=== PATIENT | male | born 1985 | race Asian ===

== ENCOUNTER 2018-04-07 17:28 | Emergency (ER) | payer SELFPAY ==
--- NOTE | 2018-04-07 18:28 | ER Document Report ---
HPI - HPI Patient complains to provider of: Abscess Onset: Other - 5 days Onset/Duration: Gradual Pain Level: 4 Context: 33-year-old male with a history scrotal abscess c/o large abscess left buttocks started having pain and swelling 5 days ago. No fever or chills. Patient goes to urgent care for his metformin that he takes twice a day. He does not take medication for high blood pressure he thinks that this high blood pressure is due to the pain. I will recheck a manual blood pressure encourage him to start on blood pressure medicine if it remains high. For him back to his urgent care that he goes for his primary care Associated Symptoms: None Exacerbated by: Movement, Walking Relieved by: Denies Similar symptoms previously: Yes Recently seen / treated by doctor: No - ROS ROS below otherwise negative: Yes Systems Reviewed and Negative: Yes All other systems reviewed and negative Past Medical History - General Information source: Patient - Social History Smoking Status: Current Every Day Smoker Frequency of alcohol use: None Drug Abuse: None Lives with: Family Family History: None Endocrine Medical History: Reports: Hx Diabetes Mellitus Type 2 Surgical Hx: Negative - Immunizations Hx Diphtheria, Pertussis, Tetanus Vaccination: Yes Vertical Provider Document - CONSTITUTIONAL Agree With Documented VS: Yes Exam Limitations: No Limitations - INFECTION CONTROL TRAVEL OUTSIDE OF THE [place] IN LAST 30 DAYS: No - MUSCULOSKELETAL/EXTREMETIES Musculoskeletal/Extremeties: Tender - Left-sided gluteal absess with induration 6 x 6 cm - NEURO Level of Consciousness: Alert - DERM Integumentary: No Rash, Abscess - See above Course - Re-evaluation Re-evalutation: 04/07/18 19:42 Discussed with patient about how largest cavity was in the fact that he is a type II diabetic he needs to follow-up within 24 hours antibiotics have been given 04/07/18 20:14 Patient did not take his metformin today he does have metformin at home I discussed at length with him about needing tighter control of glucose and getting treatment for hypertension I have given him referral to family practice doctors and he assures me that he will return sooner if he feels worse tomorrow as planned for recheck. - Vital Signs Vital signs: Temp Pulse Resp BP Pulse Ox 99.1 F 100 16 176/114 H 99 04/07/18 17:53 04/07/18 17:53 04/07/18 17:53 04/07/18 17:53 04/07/18 17:53 Procedures - Incision and Drainage Buttock Time completed: 19:41 Type: Simple Anesthetic type: 1% Lidocaine mL's of anesthetic: 5 Blade size: 11 I&D procedure: Betadine prep applied, Sterile dressing applied, Other - corner of 4 x 4 packing Incision Method: Incision made by scalpel Amount/type of drainage: large pus- cavity was 4 x 4 cm, irriagted with 150 ml NS Notes: 04/07/18 19:43 The first incision over fluctuance did not release any pus so I used a syringe and needle to find where the pus was over another area and pus was extracted so I incised there and large amounts of pus came out and I irrigated the cavity. Discharge - Discharge Clinical Impression: left buttocks abscess, Incision and drainage, Uncontrolled diabetes Hypertension Qualifiers: Hypertension type: unspecified Qualified Code(s): I10 - Essential (primary) hypertension Condition: Good Disposition: HOME, SELF-CARE Instructions: Abscess ([facility]), Cephalexin ([facility]), Post Incision and Drainage, Trimethoprim-Sulfa ([facility]), Warm Packs ([facility]), High Blood Pressure ([facility]), Diabetes ([facility]), Family Physicians / Practices Additional Instructions: Warm compress Recheck in 24 hours Return to the emergency room sooner if you develop a fever Take the antibiotics as prescribed Take the metformin when you get home List is given to you for primary care doctor to treat the high blood pressure and diabetes. Prescriptions: Cephalexin Monohydrate [Keflex 500 mg Capsule] 500 mg PO QID #28 capsule Sulfamethoxazole/Trimethoprim [Septra-Ds 800-160 mg Tablet] 1 tab PO NOW #14 tablet Referrals: MADIE BELTRAN MD [ACTIVE STAFF] - 04/10/18
[2018-04-07] MEDS: SULFAMETHOXAZOLE/TRIMETHOPRIM 800-160 MG TABLET PO ONE (18:48)
[2018-04-07] MEDS: ACETAMINOPHEN 325 MG TABLET PO ONE (18:48)
[2018-04-07] MEDS: CEPHALEXIN 500 MG CAPSULE PO ONE (18:48)
[2018-04-07] MEDS: LIDOCAINE 4%/TETRACAINE 0.5%/EPI 0.18% 5 ML TOPICAL SOLN TOP ONE (18:48)
[2018-04-07] MEDS: IBUPROFEN 800 MG TABLET PO ONE (18:48)
[2018-04-07 20:18] VITALS: BP 180/115
== END 2018-04-07 20:35 | disposition home or self-care (01) ==
LOC: ER 17:28
DX: L02.31 Cutaneous abscess of buttock (principal); E11.65 Type 2 diabetes mellitus with hyperglycemia; T38.3X6A Underdosing of insulin and oral hypoglycemic [antidiabetic] drugs, initial encounter; Z91.128 Patient's intentional underdosing of medication regimen for other reason; Z91.14 Patient's other noncompliance with medication regimen; Z79.84 Long term (current) use of oral hypoglycemic drugs; I10 Essential (primary) hypertension; F17.200 Nicotine dependence, unspecified, uncomplicated
CPT/HCPCS: 10060; 99283; 82962; J3490

== ENCOUNTER 2018-04-25 21:17 | Emergency (ER) | payer SELFPAY ==
--- NOTE | 2018-04-26 01:44 | ER Document Report ---
ED Skin Rash/Insect Bite/Abscs - General Chief Complaint: Abscess Stated Complaint: CYST DRAINING Time Seen by Provider: 04/26/18 00:01 Mode of Arrival: Ambulatory Information source: Patient Notes: Patient presents with complaint of abscess to the upper buttocks just superior to the gluteal fold. Patient reports he was seen here recently and had an abscess drained in the similar area. Patient reports being compliant with his antibiotics. Patient denies any fever, chills, nausea or vomiting. Patient denies any history of MRSA. TRAVEL OUTSIDE OF THE [place] IN LAST 30 DAYS: No - Related Data Allergies/Adverse Reactions: No Known Allergies Allergy (Verified 01/02/15 20:53) Past Medical History - General Information source: Patient - Social History Smoking Status: Former Smoker Chew tobacco use (# tins/day): No Frequency of alcohol use: None Drug Abuse: None Family History: None Patient has suicidal ideation: No Patient has homicidal ideation: No - Past Medical History Cardiac Medical History: Reports: Hx Hypertension Endocrine Medical History: Reports: Hx Diabetes Mellitus Type 2 Renal/ Medical History: Denies: Hx Peritoneal Dialysis Psychiatric Medical History: Reports: Hx Anxiety Surgical Hx: Negative - Immunizations Hx Diphtheria, Pertussis, Tetanus Vaccination: Yes Review of Systems - Review of Systems Constitutional: No symptoms reported EENT: No symptoms reported Cardiovascular: No symptoms reported Respiratory: No symptoms reported Gastrointestinal: No symptoms reported Genitourinary: No symptoms reported Male Genitourinary: No symptoms reported Musculoskeletal: No symptoms reported Skin: See HPI Hematologic/Lymphatic: No symptoms reported Neurological/Psychological: No symptoms reported Physical Exam - Vital signs Vitals: Temp Pulse Resp BP Pulse Ox 99.4 F 117 H 20 185/128 H 99 04/25/18 21:23 04/25/18 21:23 04/25/18 21:23 04/25/18 21:23 04/25/18 21:23 - Notes Notes: PHYSICAL EXAMINATION: GENERAL: Well-appearing, well-nourished and in no acute distress. HEAD: Atraumatic, normocephalic. EYES: Pupils equal round and reactive to light, extraocular movements intact, sclera anicteric, conjunctiva are normal. ENT: Nares patent, oropharynx clear without exudates. Moist mucous membranes. NECK: Normal range of motion, supple without lymphadenopathy LUNGS: Breath sounds clear to auscultation bilaterally and equal. No wheezes rales or rhonchi. HEART: Regular rate and rhythm without murmurs ABDOMEN: Soft, nontender, nondistended abdomen. No guarding, no rebound. No masses appreciated. Musculoskeletal: Normal range of motion, no pitting or edema. No cyanosis. NEUROLOGICAL: Cranial nerves grossly intact. Normal speech, normal gait. Normal sensory, motor exams PSYCH: Normal mood, normal affect. SKIN: Warm, Dry, normal turgor. Large erythematous noted just superior to the gluteal fold left side of the buttock. Large area of induration and fluctuance. Course - Re-evaluation Re-evalutation: Incision and drainage was performed, see procedure notes. Large amount of pus/ drainage was removed. This is the second time in a few weeks that this has been drained. I did discuss with patient following up with the surgeon may need a surgical washout if this continues. I also discussed patient's blood pressure as patient states that he has hypertension but has not taken any medications in several years as he does not feel that it is important. Patient' s blood pressure at time of discharge is down to 166/104. Patient was tachycardic on arrival with a heart rate of 119, this has gone down to 109. Patient is afebrile and has denied any fevers over the last several weeks. Discussed the importance of following up with a primary care provider for blood pressure management. Patient does verbalize understanding of same. Patient reports understanding of need to return in 24 hours for removal of the packing. - Vital Signs Vital signs: Temp Pulse Resp BP Pulse Ox 98.5 F 109 H 16 166/104 H 100 04/26/18 01:52 04/26/18 01:52 04/26/18 01:52 04/26/18 01:52 04/26/18 01:52 Procedures - Incision and Drainage left buttock Type: Multiple Anesthetic type: 1% Lidocaine Blade size: 11 I&D procedure: Betadine prep applied, Shurclens applied, Iodoform packing placed Incision Method: Incision made by scalpel Adult Front & Back picture: 1 - Erythematous area with induration and fluctuance Discharge - Discharge Clinical Impression: Abscess Condition: Stable Disposition: HOME, SELF-CARE Additional Instructions: ABSCESS: You have an abscess (boil). This a pus-forming infection, usually due to staph. Some boils may be left to drain on their own, but most require lancing. From the time the tender lump first appears, it may be three or four days before the abscess is ready to bob. Local heat and rest help at this stage of treatment. An antibiotic may prevent spread of the infection. Once the abscess is opened, packing may be placed into it. This is done so pus is not sealed inside by premature closure of the cavity. The packing will be removed at your follow-up visit or you may be advised to remove it yourself at home. Sometimes this packing must be replaced a few times during healing. The wound will heal with surprisingly little scar. Depending on the size and location of an abscess, healing can take one to four weeks. You may shower and wash the area around the incision site two or three times a day. Antibiotics may be prescribed, but are usually not necessary after an abscess has been drained. If you develop fever, chills, worsening pain, or increasing swelling in the area, call the doctor or return immediately. POST INCISION AND DRAINAGE: You have had an incision made to allow drainage of an abscess. The incision must remain open so that pus and debris can drain from the wound. If the abscess cavity is large, packing is placed. This keeps the tissues from collapsing and trapping pus inside, while the body shrinks the cavity. The packing may need to be replaced every day or two. The physician will instruct you on the packing. Keep a bulky dressing over the area. Replace it if it becomes saturated with blood or pus. Do not disturb the packing (if present). You may shower and cleanse the area with gentle soap and warm water two or three times a day. Local warmth may be soothing, and may promote faster healing. Return if you develop high fever or chills, or if you note spreading redness, increasing swelling, or increasing tenderness. MRSA CELLULITIS: You have an infection of your skin and underlying soft tissues called cellulitis. This is due to bacteria, which can enter through any break in the skin, or even through an irritated hair follicle. Untreated, cellulitis will usually worsen and may form an abscess which requires draining. Although many bacterial organisms can cause cellulitis and abscess formations, the most likely bacteria is Methicillin-Resistant Staph Aureus, or MRSA for short. Antibiotics are required. Usually, warm packs or warm soaks, and elevation of the infected area are recommended. You should start getting better within 24 to 36 hours. Most infections respond quickly to the right medication. Follow-up care is important, however, to check for abscess (boil) formation, unsuspected foreign body, or resistant infection. If you develop fever, chills, or if the area of infection is becoming rapidly more swollen or painful, call the doctor at once. ORAL NARCOTIC MEDICATION: You have been given a prescription for pain control. This medication is a narcotic. It's best taken with food, as nausea can result if taken on an empty stomach. Don't operate machinery or drive within six hours of taking this medication. Do not combine this medicine with alcohol, or with any medication which can cause sedation (such as cold tablets or sleeping pills) unless you get permission from the physician. Narcotics tend to cause constipation. If possible, drink plenty of fluids and eat a diet high in fiber and fruits. CEPHALEXIN: The antibiotic you've been prescribed is a member of the cephalosporin class. This type of antibiotic covers a wide variety of infections, including those of the skin, lungs, and urinary tract. It's useful for staph infections. This antibiotic is slightly similar to the penicillin family. In rare cases , a person who is allergic to penicillin will also be allergic to this medication. If you have had a severe allergic reaction to penicillin, and have not taken this antibiotic since that time, notify your doctor. Antibiotics which cover many germs ("broad spectrum" antibiotics) are more likely to cause diarrhea or "yeast" infections. Women prone to vaginal yeast problems may suffer an attack after taking this antibiotic. In infants, oral thrush (white spots "stuck" on the cheek) or yeast diaper rash may result. See your doctor if these problems occur. Call at once if you develop itching, hives , shortness of breath, or lightheadedness. DOXYCYCLINE: Doxycycline (Vibramycin, Doryx) is an antibiotic of the tetracycline family. This type of drug is useful for infections of the respiratory tract and genital tract, and is sometimes used for intestinal infections. Unlike most tetracyclines, doxycycline can be taken with food. It is longer acting, and (usually) less prone to side effects than regular tetracycline. Tetracycline antibiotics can stain immature teeth and SHOULD NOT BE TAKEN BY CHILDREN, NURSING MOTHERS, OR WOMEN. Tetracyclines can make you more prone to sunburn. Abdominal cramping, nausea, and diarrhea are occasional side effects. Women may experience vaginal yeast infections. Call the doctor at once if you develop hives, itching, shortness of breath , or lightheadedness. FOLLOW-UP CARE: Most simple abscesses will not require a follow up visit. If you had packing placed in the abscess, remove it as instructed by the physician. If you have been referred to a physician for follow-up care, call the physicians office for an appointment as you were instructed or within the next two days. If you experience worsening or a significant change in your symptoms, return to the Emergency Department at any time for re-evaluation. please return in 24 hours for packing removal. As discussed please call [facility] to set up an appointment to have your abscess evaluated as they may want to do a washout at some point if you continue to have these abscesses. Prescriptions: Cephalexin Monohydrate [Keflex 500 mg Capsule] 500 mg PO Q6H 7 Days #28 capsule Doxycycline Hyclate 100 mg PO BID #14 capsule Referrals: THEODORE MARQUEZ MD [ACTIVE STAFF] - Follow up as needed
[2018-04-26 01:54] VITALS: BP 166/104
== END 2018-04-26 02:05 | disposition home or self-care (01) ==
LOC: ER 21:17
PROC: 0H98XZZ Drainage of Buttock Skin, External Approach (ICD-10-PCS; principal; 2018-04-25)
DX: L02.31 Cutaneous abscess of buttock (principal); Z87.891 Personal history of nicotine dependence; I10 Essential (primary) hypertension; E11.9 Type 2 diabetes mellitus without complications
CPT/HCPCS: 99283; A6266

== ENCOUNTER 2019-07-02 11:18 | Emergency (ER) | payer SELFPAY ==
--- NOTE | 2019-07-02 12:07 | ER Document Report ---
ED Medical Screen (RME) - General Chief Complaint: Cyst Stated Complaint: ABSCESS Time Seen by Provider: 07/02/19 11:53 Notes: 34-year-old male presents emergency department with a pilonidal cyst. Patient has history in the past. No history of MRSA. No fevers but complains of chills. Exam: Large abscess at the top of the gluteal cleft on the right side with an area of fluctuance with large area of induration I have greeted and performed a rapid initial assessment of this patient. A comprehensive ED assessment and evaluation of the patient, analysis of test results and completion of medical decision making process will be conducted by an additional ED providers. TRAVEL OUTSIDE OF THE [place] IN LAST 30 DAYS: No - Related Data Allergies/Adverse Reactions: No Known Allergies Allergy (Verified 07/02/19 11:53) Home Medications: metformin BID Past Medical History - Social History Chew tobacco use (# tins/day): No Frequency of alcohol use: None Drug Abuse: None - Past Medical History Cardiac Medical History: Reports: Hx Hypertension Endocrine Medical History: Reports: Hx Diabetes Mellitus Type 2 Renal/ Medical History: Denies: Hx Peritoneal Dialysis Psychiatric Medical History: Reports: Hx Anxiety - Immunizations Hx Diphtheria, Pertussis, Tetanus Vaccination: Yes Physical Exam - Vital signs Vitals: Temp Pulse Resp BP Pulse Ox 98.8 F 104 H 20 178/105 H 98 07/02/19 11:37 07/02/19 11:37 07/02/19 11:37 07/02/19 11:37 07/02/19 11:37 Course - Vital Signs Vital signs: Temp Pulse Resp BP Pulse Ox 98.8 F 104 H 20 178/105 H 98 07/02/19 11:37 07/02/19 11:37 07/02/19 11:37 07/02/19 11:37 07/02/19 11:37
[2019-07-02] MEDS ORDERED: OXYCODONE-ACETAMINOPHEN 5-325 MG TABLET PO ONE (14:18)
[2019-07-02] MEDS ORDERED: LIDOCAINE 1% INJ-PF (10 MG/ML) 30 ML SDV INJ ONE (14:18)
[2019-07-02] MEDS ORDERED: SULFAMETHOXAZOLE/TRIMETHOPRIM 800-160 MG TABLET PO ONE (14:18)
[2019-07-02] MEDS ORDERED: CEPHALEXIN 500 MG CAPSULE PO ONE (14:18)
--- NOTE | 2019-07-02 14:43 | ER Document Report ---
ED Skin Rash/Insect Bite/Abscs - General Chief Complaint: Cyst Stated Complaint: ABSCESS Time Seen by Provider: 07/02/19 11:53 Primary Care Provider: MARK ANTHONY VILLA MD [ACTIVE STAFF] - Follow up as needed Notes: RME NOTE: 34-year-old male presents emergency department with a pilonidal cyst. Patient has history in the past. No history of MRSA. No fevers but complains of chills. Exam: Large abscess at the top of the gluteal cleft on the right side with an area of fluctuance with large area of induration. MY HPI: Patient has had 3 abscesses in the area in the last 3 years. States he is never followed up with surgery. States he is typically placed on antibiotics with an incision and drainage and they "clear up." Patient does take metformin on a daily basis for diabetes, patient's denying any history of fevers. Patient states he also takes medication for high blood pressure. States he thinks it is lisinopril but he is not 100% sure. Patient is denying headache, lightheadedness, dizziness, chest pain. Patient's only complaint is pain and irritation to the left buttocks where the abscesses. TRAVEL OUTSIDE OF THE [place] IN LAST 30 DAYS: No - Related Data Allergies/Adverse Reactions: No Known Allergies Allergy (Verified 07/02/19 11:53) Home Medications: metformin BID Past Medical History - General Information source: Patient - Social History Smoking Status: Former Smoker Chew tobacco use (# tins/day): No Frequency of alcohol use: None Drug Abuse: None Family History: None Patient has suicidal ideation: No Patient has homicidal ideation: No - Past Medical History Cardiac Medical History: Reports: Hx Hypertension Endocrine Medical History: Reports: Hx Diabetes Mellitus Type 2 Renal/ Medical History: Denies: Hx Peritoneal Dialysis Psychiatric Medical History: Reports: Hx Anxiety - Immunizations Hx Diphtheria, Pertussis, Tetanus Vaccination: Yes Review of Systems - Review of Systems Constitutional: denies: Fever EENT: No symptoms reported Cardiovascular: No symptoms reported Respiratory: No symptoms reported Gastrointestinal: No symptoms reported Genitourinary: No symptoms reported Male Genitourinary: No symptoms reported Musculoskeletal: See HPI Skin: See HPI Hematologic/Lymphatic: No symptoms reported Neurological/Psychological: No symptoms reported Physical Exam - Vital signs Vitals: Temp Pulse Resp BP Pulse Ox 98.8 F 104 H 20 178/105 H 98 07/02/19 11:37 07/02/19 11:37 07/02/19 11:37 07/02/19 11:37 07/02/19 11:37 - Notes Notes: GENERAL: Alert, interacts well. No acute distress. HEAD: Normocephalic, atraumatic. EYES: Pupils equal, round, and reactive to light. Extraocular movements intact. ENT: Oral mucosa moist, tongue midline. NECK: Full range of motion. Supple. Trachea midline. LUNGS: Clear to auscultation bilaterally, no wheezes, rales, or rhonchi. No respiratory distress. HEART: Regular rate and rhythm. No murmur ABDOMEN: Soft, non-tender. Non-distended. Bowel sounds present in all 4 quadrants. EXTREMITIES: Moves all 4 extremities spontaneously. No edema, normal radial and dorsalis pedis pulses bilaterally. No cyanosis. BACK: no cervical, thoracic, lumbar midline tenderness. No saddle anesthesia, normal distal neurovascular exam. NEUROLOGICAL: Alert and oriented x3. Normal speech. cranial nerves II through XII grossly intact. PSYCH: Normal affect, normal mood. SKIN: Warm, dry, normal turgor. Large area of erythema approx. 5cm x 6cm noted to the left buttocks near the gluteal cleft, area of fluctuance noted centrally. Course - Re-evaluation Re-evalutation: Incision and drain performed, patient tolerated well, see procedure note for details. Based on patient's cellulitic tissue we will treat with Bactrim and Keflex. Discussed use of Epson salt warm baths and following up with primary care. Patient voices he is uninsured, discussed [facility] with him. Patient voices he has 2 months prescription left on his metformin and blood pressure medication still. At this time will discharge with return precautions and follow-up recommendations. Verbal discharge instructions given a the bedside and opportunity for questions given. Medication warnings reviewed. Patient is in agreement with this plan and has verbalized understanding of return precautions and the need for primary care follow-up in the next 24-72 hours. This medical record was dictated with voice recognizing software. There may be grammatical, syntax errors that are unintended. - Vital Signs Vital signs: Temp Pulse Resp BP Pulse Ox 98.5 F 101 H 16 140/86 H 100 07/02/19 16:38 10/14/19 16:38 07/02/19 16:38 07/02/19 16:40 07/02/19 16:38 Procedures - Incision and Drainage buttocks Type: Simple Anesthetic type: 1% Lidocaine mL's of anesthetic: 5 Blade size: 11 I&D procedure: Betadine prep applied, Shurclens applied, Sterile dressing applied Incision Method: Incision made by scalpel Amount/type of drainage: Copious, purulent. Discharge - Discharge Clinical Impression: Cellulitis and abscess of buttock Condition: Stable Disposition: HOME, SELF-CARE Instructions: Abscess ([facility]), Cephalexin ([facility]), Oral Narcotic Medication ([facility]), Post Incision and Drainage, Trimethoprim-Sulfa ([facility]) Additional Instructions: As we discussed you have been seen and treated in the emergency department for an abscess and cellulitis. Please make sure you are soaking the area and Epson salt and warm water at least twice a day. You should expect to see continued drainage, this is normal. Please make sure you are taking antibiotics as prescribed. Please also follow-up with a primary care provider in the next 24 to 48 hours. Phone numbers for [facility] will be provided in this packet. These are clinics you can go to even though you are uninsured. Your blood pressure was also noted to be elevated at today's visit. Again please make sure he follow-up at [facility] for care. I have also given you referrals for surgery, please follow-up with them for continued care of these abscesses. Prescriptions: Sulfamethoxazole/Trimethoprim [Bactrim Ds Tablet] 1 each PO BID 7 Days #14 tablet Cephalexin Monohydrate [Keflex 500 mg Capsule] 500 mg PO BID 7 Days #14 capsule Forms: Elevated Blood Pressure Referrals: MARK ANTHONY VILLA MD [ACTIVE STAFF] - Follow up as needed
[2019-07-02] MEDS ORDERED: HYDROCODONE/ACETAMINOPHEN 5-325 MG (6 TAB/ER DISP) PO PRN (16:37)
[2019-07-02 16:54] VITALS: BP 140/86
== END 2019-07-02 16:56 | disposition home or self-care (01) ==
LOC: ER 11:18
DX: L03.317 Cellulitis of buttock (principal); I10 Essential (primary) hypertension; E11.9 Type 2 diabetes mellitus without complications
CPT/HCPCS: 99283; 10060; J3490